=== PATIENT | female | born 2000 | race Caucasian/White ===

== ENCOUNTER 2021-04-09 11:24 | Emergency (ER) | payer OTHER, SELFPAY ==
[2021-04-09 11:32] VITALS: BP 150/82; PULSE 106; RESP 16; TEMP 37; O2SAT 100
[2021-04-09 11:40] VITALS: BP 150/82; PULSE 106; RESP 16; TEMP 37; O2SAT 100
--- NOTE | 2021-04-09 12:22 | ED.URI ---
HPI - URI/Sore Throat General Chief Complaint: Upper Respiratory Infection Stated Complaint: body aches/mueller/nausea/dizzy/vomiting Time Seen by Provider: 04/09/21 12:14 Source: patient and RN notes reviewed Mode of arrival: ambulatory Limitations: no limitations History of Present Illness HPI Narrative: Patient presents today complaint of headache, body aches, dizziness, nausea and vomiting, ear pain, and sore throat since last night. Denies fever or cough. She has been taking Mucinex without relief. Currently rates her pain 5/10. Coworker has recently tested positive for COVID-19. She has been vaccinated against COVID-19. She has not received a flu vaccine. MD elicited complaint: sore throat and other (Headache body aches) Related Data Allergies Allergy/AdvReac Type Severity Reaction Status Date / Time No Known Allergies Allergy Unknown Verified 05/06/15 15:56 Review of Systems Review of Systems: CONSTITUTIONAL: Denies fever, chills, or sweats.+ Body aches EYES: Denies visual changes, redness, or discharge. ENT: Denies rhinorrhea, congestion. + Sore throat, ear pain CARDIOVASCULAR: Denies chest pain, palpitations, or edema. RESPIRATORY: Denies cough or dyspnea. GASTROINTESTINAL: Denies abdominal pain, or diarrhea.+ Nausea, vomiting GENITOURINARY: Denies dysuria or hematuria. SKIN: Denies rash, itching, or wounds. MUSCULOSKELETAL: Denies back pain, joint pain, or myalgia. NEUROLOGIC: Denies numbness, tingling, or weakness.+ Headache dizziness PSYCH: Denies depression or anxiety. PMFSH Comments At time of signature, I have reviewed and agree with nursing past medical, surgical, social and family history unless otherwise noted. Please see nursing chart for further information. There is no relevant family history pertinent to the presenting complaint Exam Narrative: GENERAL: Mildly ill-appearing, well-nourished, and in no acute distress. Tearful HEAD: Normocephalic, atraumatic. EYES: EOMI. No redness or drainage. Conjunctivae normal. ENT: Mucous membranes pink and moist. Nares congested. No rhinorrhea. TMs normal bilaterally. Throat normal. Uvula midline. NECK: Normal AROM. Supple. No lymphadenopathy. CHEST: No respiratory distress. Clear to auscultation. HEART: Regular rate and rhythm. No murmur appreciated. Normal peripheral pulses. EXTREMITIES: Normal range of motion. No edema. SKIN: Warm, dry, no rash. Capillary refill normal. Normal skin turgor. NEURO: No focal deficits. Alert and oriented x3. Gait steady. PSYCH: Normal affect. No signs of depression or anxiety. Course Vital Signs Vital signs: Vital Signs Temperature 98.6 F 04/09/21 11:32 Pulse Rate 106 H 04/09/21 11:32 Respiratory Rate 16 04/09/21 11:32 Blood Pressure 150/82 H 04/09/21 11:32 Pulse Oximetry 100 04/09/21 11:32 Temperature 98.6 F 04/09/21 11:40 Pulse Rate 106 H 04/09/21 11:40 Respiratory Rate 16 04/09/21 11:40 Blood Pressure 150/82 H 04/09/21 11:40 Pulse Oximetry 100 04/09/21 11:40 Reviewed. Pt has been instructed to follow up with her PCP regarding her elevated blood pressure today. MDM - URI/Sore Throat Differential Diagnosis Differential diagnosis: Likely upper respiratory infection, viral infection, influenza and other (Strep throat, COVID-19) Lab Data Attestation: I reviewed the patient's lab results. Labs: Influenza A Screen Negative Reference Range: Negative Influenza B Screen Negative Reference Range: Negative Strep Screen Presumptive Negative *(Reference Range: Negative)* Critical Care Time Critical Care Time Critical Care Time: No Discharge Plan Discharge Clinical Impression: Viral syndrome Patient Disposition: Home, Self-Care Condition: Stable Instructions: Viral Syndrome (ED) Additional Ins
== END 2021-04-09 12:54 | disposition home or self-care (01) ==
PROVIDERS: Emergency Provider Nurse Practitioner
DX: B34.9 Viral infection, unspecified (principal); Z20.822 Contact with and (suspected) exposure to COVID-19
CPT/HCPCS: 87081; 87804; 87880; 99203; G0463

== ENCOUNTER 2021-05-28 19:29 | Emergency (ER) | payer OTHER, SELFPAY ==
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
[2021-05-28 19:37] VITALS: BP 137/84; PULSE 89; RESP 16; TEMP 37.1; O2SAT 100
[2021-05-28 20:24] VITALS: BP 132/87; PULSE 79; RESP 16; TEMP 36.3; O2SAT 99
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
[2021-05-28 22:11] VITALS: BP 129/64; PULSE 80; RESP 15; O2SAT 99
[2021-05-28] MEDS: ACETAMINOPHEN 500 MG TABLET 1000 MG PO (22:21)
[2021-05-28] MEDS: IBUPROFEN 600 MG TABLET PO (22:21)
[2021-05-28] MEDS: CYCLOBENZAPRINE HCL 10 MG TABLET PO (22:22)
== END 2021-05-28 22:37 | disposition home or self-care (01) ==
PROVIDERS: Emergency Provider Emergency Medicine
DX: S16.1XXA Strain of muscle, fascia and tendon at neck level, initial encounter (principal); V43.52XA Car driver injured in collision with other type car in traffic accident, initial encounter
CPT/HCPCS: 70450; 72125; 99284; A9270